=== PATIENT | male | born 1960 | race Caucasian/White ===

== ENCOUNTER → 2016-10-01 | Day surgery (SDC) | payer OTHER ==
[~2016-10-01] VITALS: Ht 167.6 cm; Wt 77.6 kg
[~2016-10-01] MED LIST: ASPIRIN EC81 M1 PO; AUGMENTIN 875875 MG PO; CIALIS5 MG PO; FLU VACCINE 0.0.5 ML IM; LIPITOR10 M1 PO; MP MAGNESIUM100 MG PO; NEXIUM 40MG40 MG PO; NEXIUM40 M1 PO; OMEGA 31000 MG PO; REGLAN10 M1 PO; ROPINIROLE HCL0.5 MG PO; SERTRALINE HYDR50 MG PO; VITAMIN B121000 MC2 PO; VITAMIN D1000 IU PO; ZANTAC150 M1 PO; ZOFRAN ODT4 MG PO; ZOLOFT50 M1 PO
--- NOTE | 2016-10-01 11:31 | Operative Report ---
Operative/Inv Procedure Report Surgery Date: 10/01/16 Name of Procedure: Right ulnar nerve decompression and transposition Pre-Operative Diagnosis: Right cubital tunnel syndrome Post-Operative Diagnosis: Right cubital tunnel syndrome Estimated Blood Loss: less than 50ml Surgeon/Structural Rigger: FABIO CESAR,[place] Anesthesia: general endotracheal tube Complications: None Condition: Stable to PACU Operative Indication: This is a 55-year-old male long-standing right elbow cubital tunnel syndrome. He has failed conservative care. Risks and benefits of the procedure were discussed with the patient at length. Risks include but are not limited to nerve damage, muscle damage, infection, blood loss, blood clots, pulmonary embolus, and even . The patient agreed to the above risks and elected to proceed with surgery. Operative/Procedure Note Note: The patient was taken to the operating room and placed supine on the operating room table. A tourniquet was applied to the arm above the elbow. The upper extremity was prepped and draped in the normal sterile fashion. The patient received IV antibiotics prior to incision. A time out was performed and the site marking was also visualized prior to incision. An Esmarch was used to exsanguinate the extremity. The tourniquet was inflated. An incision was made extending proximally and distally from the medial epicondyle. Skin flaps were developed. The medial antebrachial cutaneous nerve was identified and protected. The cubital tunnel was then identified. The ulnar nerve was isolated. It was then released proximally and distally. The FCU fascia was incised distally and the ulnar nerve was further released. Care was taken to protect the motor branches. A sling from the medial intermuscular septum was then developed with a Bovie. The ulnar nerve was transposed anteriorly and a sling was then tied down over the top to the volar forearm muscle fascia. This was fixed with a 3-0 Tycron suture. The triceps fascia was repaired with 0 Vicryl suture. The tourniquet was let down. Any bleeding vessels were identified and cauterized. The wound was copiously irrigated. The skin was then closed with 2-0 Vicryl suture and a running subcuticular 3-0 Prolene stitch. A dry sterile dressing was placed and patient was transferred to PACU in stable condition.
== END ==
LOC: STS 01:42
DX: G56.21 Lesion of ulnar nerve, right upper limb (principal); K21.9 Gastro-esophageal reflux disease without esophagitis; Z85.01 Personal history of malignant neoplasm of esophagus; Z87.891 Personal history of nicotine dependence
CPT/HCPCS: J0131; J0690; J2250